=== PATIENT | female | born 1980 | race African-American/Black ===

== ENCOUNTER 2019-06-15 10:02 | Emergency (ER) | payer MEDICAID, OTHER ==
[~2019-06-15] VITALS: Ht 157.5 cm; Wt 63.0 kg
[2019-06-15 10:32] VITALS: BP 128/80
[2019-06-15] MEDS ORDERED: KETOROLAC 60MG/2ML VIAL IM ONE (11:00)
== END 2019-06-15 12:45 | disposition left against medical advice (07) ==
LOC: ER 10:02
DX: M54.2 Cervicalgia (principal); R07.81 Pleurodynia; J45.909 Unspecified asthma, uncomplicated; Z98.51 Tubal ligation status; Y04.0XXA Assault by unarmed brawl or fight, initial encounter; V19.9XXA Pedal cyclist (driver) (passenger) injured in unspecified traffic accident, initial encounter; Y93.89 Activity, other specified; Y92.89 Other specified places as the place of occurrence of the external cause
CPT/HCPCS: 71045; 72125; 96372; 99284; J1885